=== PATIENT | male | born 1995 | race Caucasian/White ===

== ENCOUNTER 2018-01-04 17:52 | Emergency (ER) | payer OTHER ==
--- NOTE | 2018-01-04 18:11 | EDPHY ---
H & P Time Seen by Provider: 01/04/18 17:59 HPI/ROS: CHIEF COMPLAINT: Right testicle pain, swelling HISTORY OF PRESENT ILLNESS: Patient is a 22-year-old male who presents emergency department with right testicular discomfort and swelling. His symptoms started 3 days ago. He initially noted discomfort. He then thought it was slightly swollen to appearance. He felt a small palpable mass on the inferior pole of his testicle. He has had no dysuria or frequency. No hematuria. No flank pain. No fevers or chills. Patient is sexually active but uses a condom. He has had no penile discharge. REVIEW OF SYSTEMS: My complete review of systems is negative except as mentioned in the HPI. Past Medical/Surgical History: Includes attention deficit hyperactivity disorder, gastritis Smoking Status: Former smoker Physical Exam: Vitals noted GENERAL: Well-appearing, in no acute distress, alert. HEENT: Eyes normal, no signs of dehydration. RESPIRATORY: Clear to auscultation bilaterally, no rales, rhonchi or wheezing. CVS: Regular rate and rhythm, no rubs, murmurs, or gallops. ABDOMEN: Soft, nontender. : Patient is penis and scrotum appear normal. Circumcised. The patient has no penile discharge. Patient's right testicle appears normal size. There is no significant palpable mass. Mild inferior pole tenderness to palpation. No scrotal erythema or warmth. Positive cremaster reflex BACK: Normal to inspection, no CVA tenderness. SKIN: Normal color, no rash, warm, dry. No pallor. EXTREMITIES: Normal, no joint swelling. NEURO/PSYCH: Alert and oriented, normal mood and affect. Constitutional: Initial Vital Signs Temperature (C) 36.7 C 01/04/18 17:53 Heart Rate 61 01/04/18 17:53 Respiratory Rate 16 01/04/18 17:53 Blood Pressure 115/52 L 01/04/18 17:53 O2 Sat (%) 97 01/04/18 17:53 O2 Delivery Mode Room Air Allergies/Adverse Reactions: No Known Allergies Allergy (Verified 01/04/18 17:53) Home Medications: Medication Instructions Recorded Amphet Asp and D/Amphet [Adderall 10 mg PO PRN 01/04/18 10 MG (*)] Omeprazole 40 mg PO 01/04/18 Sucralfate [Carafate] 1 gm PO 01/04/18 Medical Decision Making ED Course/Re-evaluation: In the emergency department I discussed possible etiologies with the patient. I answered all his questions. A UA was obtained. The patient had an ultrasound ordered of his right testicle. Ultrasound: Please refer the dictated report by Dr. Jerardo Quintero. The patient has findings consistent with orchitis and epididymitis. There is an epididymal cyst on the right. There is no abnormality in the left testicle. I reviewed the Agenda guide. Patient is given ceftriaxone 250 mg IM. Patient was also given doxycycline 100 mg orally. He will take doxycycline 100 mg orally twice daily times 10 days. I discussed the diagnosis with the patient. I answered all his questions. He was instructed on bed rest, scrotal elevation and analgesia. Patient was given warnings prior to leaving. He is given follow-up with Urology. Differential Diagnosis: My differential includes but is not limited to testicular torsion, epididymitis , orchitis, testicular appendiceal, hydrocele, STD - Data Points Medications Given: Discontinued Medications Ibuprofen (Motrin) 600 mg PO EDNOW ONE Stop: 01/04/18 18:13 Last Admin: 01/04/18 18:28 Dose: Not Given Departure - Departure Disposition: Home, Routine, Self-Care Clinical Impression: Testicular pain, right, Orchitis and epididymitis Condition: Good Instructions: Testicle Pain (ED), Epididymo-Orchitis (ED) Additional Instructions: Take your entire course of antibiotics. Return with increasing pain, swelling, redness or any other concerns. Referrals: Robbie Arguello MD [Medical Doctor] - 5-7 days, call for appt.
[2018-01-04] MEDS ORDERED: IBUPROFEN 600 MG TAB PO ONE (18:12)
[2018-01-04] MEDS ORDERED: DOXYCYCLINE 100 MG PREPACK#2 BTL TAKEHOME ONE (19:10)
[2018-01-04 19:32] VITALS: BP 111/79
== END 2018-01-04 19:54 | disposition home or self-care (01) ==
DX: N45.3 Epididymo-orchitis (principal); B96.89 Other specified bacterial agents as the cause of diseases classified elsewhere; Z87.891 Personal history of nicotine dependence
CPT/HCPCS: J0696

== ENCOUNTER 2018-01-20 14:06 | Emergency (ER) | payer OTHER ==
[2018-01-20 14:11] VITALS: BP 115/59
--- NOTE | 2018-01-20 14:20 | EDPHY ---
H & P Smoking Status: Former smoker Time Seen by Provider: 01/20/18 14:18 HPI/ROS: CHIEF COMPLAINT: Continued testicle pain HISTORY OF PRESENT ILLNESS: 22-year-old male seen emergency department 2017 after atraumatic right testicle pain present further prior 3 days. At that time diagnosed with epididymo-orchitis, treated with Rocephin and given 10 days of doxycycline which he completed. He notes that he felt better while he was on the doxycycline, upon completing the doxycycline however he notes mild nonprogressive testicle pain and is worried because he is leaving for [place] in a few hours. He denies: Abdominal pain, back or flank pain, urinary abnormality, dysuria, urethral discharge, genitalia trauma, straddle injury. PRIMARY CARE PROVIDER: REVIEW OF SYSTEMS: A ten point review of systems was performed and is negative with the exception of the items mentioned in the HPI PHYSICAL EXAM (Prior to examination, patient consented to physical exam, hands were washed and my usual and customary physical exam procedures followed) 1) GENERAL: Well-developed, well-nourished, alert and oriented. Appears to be in no acute distress. 2) HEAD: Normocephalic 3) HEENT: sclera anicteric 4) LUNGS: Breathing comfortably. 5) ABDOMEN: Flat, soft, no guarding or rebound, no hernia, no mass [6) : Circumcised, no urethral discharge, scrotum unremarkable with no signs of infection or Yung's gangrene, bilateral testicles nontender, no mass, knee in nontender, bilateral cremasteric reflex present. (Ayesha,Conchita Pina) Constitutional: Initial Vital Signs Temperature (C) 36.3 C 01/20/18 14:08 Heart Rate 69 01/20/18 14:08 Respiratory Rate 17 01/20/18 14:08 Blood Pressure 115/59 L 01/20/18 14:08 O2 Sat (%) 95 01/20/18 14:08 Allergies/Adverse Reactions: No Known Allergies Allergy (Verified 01/20/18 14:07) Home Medications: Medication Instructions Recorded Amphet Asp and D/Amphet [Adderall 10 mg PO PRN 01/04/18 10 MG (*)] Doxycycline Hyclate 100 mg PO BID 10 Days tab 01/04/18 Omeprazole 40 mg PO 01/04/18 Sucralfate [Carafate] 1 gm PO 01/04/18 MDM/Departure - [facility] ED Course/Re-evaluation: I reviewed the patient's medical records from 01/04/2018 indicating diagnosis of epididymo-orchitis treated with ceftriaxone and doxycycline. He completed a full course of doxycycline. On examination today he has nontender testicles, no high-riding testicle, no urethral discharge, no signs of Yung's gangrene , bilateral cremasteric reflex present and brisk. I recommended repeat ultrasound today which patient declines noting that he has an airplane flight in few hours. I believe him to have a decision-making capacity. He inquired about another prescription for doxycycline. I do not think the benefits outweigh the risks especially as he will be traveling out of country for 12 days starting in a few hours. We discussed that his current pain may be secondary to residual pain, he is also noted to have a hydrocele on ultrasound. He has been informed however then absence of ultrasound testicular torsion is not ruled out. Recommended wearing briefs or athletic supporter. If he develops return or worsening of testicular pain, if you develop urinary abnormality or other symptoms, he needs to seek immediate medical attention. He verbalized understanding of this. I believe him to have decision-making capacity. I saw this patient independently based on established practice protocols. Care of patient under supervision of secondary supervising physician Dr Indio Livingston. (Conchita Hodge) I did not see this patient while he was in the emergency department. However his care was discussed with the PA while the patient was in the department. I agree with treatment plan and management (Vitaliy Hernandez) - Depart Disposition: Home, Routine, Self-Care Clinical Impression: Right testicular pain Condition: Good Instructions: Testicle Pain (ED) Additional Instructions: Seek immediate medical attention if you develop worsening testicle pain, if you develop urinary abnormality, if you develop abdominal pain, or any other symptoms that concern you. Adult Pain & Fever Control: We recommend Acetaminophen (Tylenol) and Ibuprofen (Motrin,Advil) for pain and fever control. When fever is high or pain severe, both drugs can be used at the same time, but at different intervals. Please note the time differences. Your dose is: Acetaminophen 650mg every 4 to 6 hours Ibuprofen 600mg every 6 hours with food OR Note: do not take Acetaminophen with Hydrocodone (Vicodin, Lortab) or Oycodone (Percocet). These medications also contain Acetaminophen. No more than 3000mg of Acetaminophen should be taken in 24 hours (for an adult). Referrals: Sharla Solano MD [Medical Doctor] - 5-7 days, call for appt.
== END 2018-01-20 14:33 | disposition home or self-care (01) ==
DX: N50.811 Right testicular pain (principal); Z87.891 Personal history of nicotine dependence